=== PATIENT | male | born 1965 | race Caucasian/White ===

== ENCOUNTER 2017-01-16 14:04 | Observation (INO) | payer BC ==
[~2017-01-16] VITALS: Ht 182.9 cm; Wt 115.6 kg
--- NOTE | ~2017-01-16 | HP ---
Unit #: [id number] #: [id number] Patient: BRIDGER MILLS [id number] [address] [place], [place] [address] [id number] I MR#: [id number] NAME: BRIDGER MILLS. ROOM: 64319 Age: 51 Sex: M Admission Date: 01/16/2017 : 1965 Attending Physician: Alen Telles M.D. HISTORY AND PHYSICAL HISTORY OF PRESENT ILLNESS This 51-year-old white male patient woke up around 3 a.m. with moderately severe chest pains. Initially, the chest pain felt like somebody was sitting on his chest. Subsequently, he had moderately severe pressure associated with shortness of breath but no diaphoresis. The pain did not radiate to the arm or neck. He was given three sublingual nitroglycerin in the ER with some relief. Patient claims that he had two heart attacks, in 2001 and 2006, while in [place]. He underwent two cardiac catheterizations at the [facility], and each time apparently it was normal. In August 2009, patient was admitted here with chest pains. At the time, he had a Cardiolite study which showed no ischemia. He has diabetes and obstructive sleep apnea. EKG shows no acute changes. Initial troponins are negative. PERSONAL HISTORY He smoked a half to one pack of cigarettes per day for several years and quit about three months ago. He works for [employer]. FAMILY HISTORY His father had a heart attack at age 50. PAST SURGICAL HISTORY 1. Tonsillectomy. 2. Inguinal hernia repair. ALLERGIES No drug allergies. He has intolerance to lisinopril. HOME MEDICATIONS 1. Glipizide. 2. Lipitor. 3. Gabapentin. 4. Prilosec. REVIEW OF SYSTEMS No fever, chills, night sweats, or weight loss. All others negative except as mentioned above. PHYSICAL EXAMINATION VITAL SIGNS: Blood pressure 135/88, heart rate 65 per minute, and respiratory rate 18 per minute. GENERAL APPEARANCE: Patient is well-developed. HEENT: Oral mucosa without cyanosis or pallor. No xanthelasma. NECK: No JVD. Unit #: [id number] #: [id number] Patient: BRIDGER MILLS CARDIOVASCULAR: Regular rate and rhythm. PMI is not displaced on auscultation. S1 and S2 are normal. No S3, S4, murmurs, rubs, or clicks noted. VASCULAR: Carotid pulses are brisk, without bruit. Abdominal aorta without bruit. Femoral and pedal pulses are normal with a normal pulse amplitude. LUNGS: Clear to auscultation without rales, rhonchi, or wheezes, and no accessory muscle use noted. ABDOMEN: Soft and nontender. No hepatosplenomegaly. RECTAL: Deferred. EXTREMITIES: Warm and dry. No cyanosis or clubbing. No pedal edema. MUSCULOSKELETAL: No scoliosis. DERMATOLOGY: No stasis dermatitis. NEUROLOGY: Alert and oriented x3. Pleasant affect. DIAGNOSTIC STUDIES LABORATORY: Glucose 263, BUN 15, creatinine 1.5, sodium 133, and potassium 3.9. Troponin less than 0.01. WBC 7.4, hemoglobin 14.4, hematocrit 41.4, and platelet count 181,000. IMPRESSION 1. Chest pain, rule out myocardial infarction. 2. History of myocardial infarction in 2001 and 2006, however, normal heart catheterizations according to patient. 3. Diabetes. 4. Obstructive sleep apnea. PLAN Patient's EKG and cardiac enzymes will be monitored. Will get an echocardiogram and schedule him for a Lexiscan Cardiolite study in the morning. Dictated by Oneal Reina/cristine TD: 01/16/2017 18:12 JOB #: [id number] HISTORY AND PHYSICAL Page 1 of 1 X Alen Telles MD X HISTORY AND PHYSICAL
--- NOTE | ~2017-01-16 | EKG ---
PATIENT: BRIDGER MILLS UNIT #: [id number] Ventricular Rate: 54 BPM Atrial Rate: 54 BPM P-R Interval: 150 ms QRS Duration: 84 ms Q-T Interval: 434 ms QTC Calculation(Bezet): 411 ms P Douglas: 56 degrees Calculated R Douglas: -3 degrees Calculated T Douglas: 9 degrees Diagnosis Line: Sinus bradycardia with sinus arrhythmia Diagnosis Line: Otherwise normal ECG Diagnosis Line: When compared with ECG of 16-JAN-2017 14:09, Diagnosis Line: No significant change was found Diagnosis Line: Confirmed by AMI VALENCIA MD ([id number]) on Diagnosis Line: 01/17/2017 9:37:15 AM INTERPRETING MD: ERIK BENTON
--- NOTE | ~2017-01-16 | ST ---
Unit #: [id number] #: [id number] Patient: BRIDGER MILLS [id number] [address] [address] [id number] I MR#: [id number] NAME: BRIDGER MILLS. : 1965 SEX: M STUDY DATE/TIME: 01/17/2017 UNIT: [facility] ROOM: 577 STUDY DESCRIPTION: Attending Physician: Alen Telles M.D. Primary Care Physician: Chinyere Primary Care Physician CARDIOLOGY REPORT EXAM ECG portion of Lexiscan stress test. SUMMARY Patient underwent Lexiscan protocol. Resting heart rate 62 beats per minute, increased to maximum of 88 beats per minute representing 52% of the maximum age predicted heart rate. The patient's resting blood pressure 119/80 mmHg which increased to 129/75 mmHg. The patient's resting ECG shows normal sinus rhythm with normal ST segments. The patient's stress ECG shows normal sinus rhythm with preserved ST segments. There is no ventricular or supraventricular ectopy noted. There are no pauses noted. CONCLUSION 1. Negative ECG portion of the Lexiscan study for ischemia. 2. Perfusion imaging to be dictated below. EXAM Perfusion imaging. SUMMARY The patient underwent nuclear stress test. Received a resting dose of 11 mCi and a stress dose of 35.8 mCi. On gated imaging, patient appears to have normal wall motion of the preserved ejection fraction. The patient's LV EF is 61%. On perfusion imaging, comparing rest and stress imaging, there appears to be no reversible perfusion defect. CONCLUSION 1. No ischemia. 2. Preserved ejection fraction. 3. ECG portion dictated above. Dictated by... Oneal Reyes/roseline TD: 01/17/2017 15:12 JOB #: [id number] Unit #: [id number] #: [id number] Patient: BRIDGER MILLS CARDIOLOGY REPORT Page 1 of 1 X JOSE A BLACKWELL MD CARDIOLOGY REPORT
--- NOTE | ~2017-01-16 | EKG ---
PATIENT: BRIDGER MILLS UNIT #: [id number] Ventricular Rate: 59 BPM Atrial Rate: 59 BPM P-R Interval: 136 ms QRS Duration: 88 ms Q-T Interval: 410 ms QTC Calculation(Bezet): 405 ms P Fombell: 21 degrees Calculated R Fombell: -23 degrees Calculated T Fombell: 6 degrees Diagnosis Line: Sinus bradycardia Diagnosis Line: Otherwise normal ECG Diagnosis Line: When compared with ECG of 10-APR-2011 16:48, Diagnosis Line: Vent. rate has decreased BY 36 BPM Diagnosis Line: Confirmed by CHARLY HITCHCOCK MD ([id number]) on Diagnosis Line: 01/16/2017 5:44:29 PM INTERPRETING MD: NALDO BENTON
--- NOTE | ~2017-01-16 | CR72 ---
[facility] A Service of [facility] RADIOLOGY TEXT RESULTS PATIENT: BRIDGER MILLS LOCATION: [facility] 57-01 : [birth year] UNIT #: [id number] AGE: [address]: Alen Telles MD SEX: M ORDER DR: [id number] [facility] [address] [place], [place] [address] [id number] I MR#: [id number] Acc #: [id number] NAME: BRIDGER MILLS. : 1965 SEX: M STUDY DATE/TIME: 01/16/2017 15:29 UNIT: [facility] ROOM: [facility] STUDY DESCRIPTION: CR Chest Single View Portable Attending Physician: Alen Telles M.D. Ordering Physician: Alli Mora M.D. Primary Care Physician: Primary Care Physician No MEDICAL IMAGING REPORT This report is preliminary unless electronic signature is present EXAM Single view chest INDICATIONS Chest pain. FINDINGS Single portable AP view of the chest compared to 04/10/2011 and 11/23/2010. The heart and mediastinal contours are normal. The lungs are clear. IMPRESSION Negative chest. Dictated by... Daquan Vargas M.D. THIS IS AN ELECTRONICALLY VERIFIED REPORT Daquan Vargas M.D. at 01/17/2017 8:10 AM C/saleem TD: 01/17/2017 02:05 JOB #: [id number] MEDICAL IMAGING REPORT Page 1 of 1 COPY
--- NOTE | ~2017-01-16 | DS ---
Unit #: [id number] #: [id number] Patient: BRIDGER MILLS [id number] [address] [address] [id number] I MR#: [id number] NAME: BRIDGER MILLS. ROOM: 577 Age: 51 Sex: M Admission Date: 01/16/2017 : 1965 Discharge Date: 01/17/2017 Attending Physician: Alen Telles M.D. DISCHARGE SUMMARY DISCHARGE DIAGNOSES 1. Chest pain. 2. History of myocardial infarction in 2001 and 2006 with reportedly normal catheterizations. 3. Diabetes. 4. Obstructive sleep apnea with CPAP. 5. Tobaccoism. PROCEDURES 1. Patient underwent a Lexiscan Cardiolite stress test which per Dr. Groves was normal. Full report is pending. 2. A 2D echocardiogram pending. 3. Troponins are less than 0.03 x2. 4. EKG unremarkable. HISTORY/HOSPITAL COURSE The patient is a 51-year-old man who reports that he has a history of non-STEMI in 2001 and 2006 with reportedly normal cardiac catheterizations. He also has a history of diabetes, obstructive sleep apnea, and tobaccoism. Patient presented to the emergency department with complaints of moderately severe chest pressure with shortness of breath but no diaphoresis. The pain did not radiate. He was given three sublingual nitroglycerin in the ER with some relief. The patient was admitted for further workup. Patient's troponin trend was negative, and his EKG was unremarkable. Patient ultimately underwent a Lexiscan Cardiolite stress test which per Dr. Groves's report was normal and showed no ischemia. His 2D echocardiogram is pending. Once the patient has been seen by Dr. Groves and if his echo is okay, the patient will be discharged today. DISCHARGE FOLLOWUP INSTRUCTIONS 1. Patient will be discharged home. 2. Healthy heart diet. 3. Follow up with primary care provider in one week. 4. Follow up with Pulmonary in one week regarding his CPAP machine. 5. Follow up with Dr. Groves in four to six weeks. 6. Activity as tolerated. 7. Patient needs to quit smoking. 8. Patient is to seek medical attention or return to the ER if signs or symptoms worsen. Unit #: [id number] #: [id number] Patient: BRIDGER MILLS DISCHARGE MEDICATIONS 1. Neurontin 300 mg p.o. t.i.d. 2. Lipitor 20 mg p.o. at bedtime. 3. Aspirin 81 mg p.o. daily. 4. Ibuprofen 800 mg p.o. t.i.d. 5. Omeprazole 20 mg p.o. daily. 6. Glipizide 10 mg p.o. daily. 1. Dictated by... Steff Haley A.P.R.N. for Jack Groves M.D. AM/cristine TD: 01/17/2017 19:01 JOB #: [id number] DISCHARGE SUMMARY Page 1 of 1 X Steff Haley [employer] X DISCHARGE SUMMARY
[~2017-01-16 14:04] MED LIST: ASPIRIN PO; DIOVAN40 MG PO; GLUCOPHAGE XR500 MG PO; GLUCOTROL PO; GLUCOTROL10 MG PO; LOPID600 MG PO; SIMVASTATIN40 MG PO
[2017-01-16 15:00] LABS: POC - CKMB 5.7 ng/mL (0.0-7.9); POC - TROPONIN <0.05 ng/mL (<=0.05)
[2017-01-16 15:09] LABS: BASOPHIL# 0.1 X10e3 (0-0.3); BASOPHIL% 0.7 % (0-2.5); EOSINOPHIL# 0.3 X10e3 (0-0.7); EOSINOPHIL% 4.6 % (0.0-7.0); HEMATOCRIT 41.4 % (38.0-50.0); HEMOGLOBIN 14.4 gm/dL (13.0-16.0); LYMPHOCYTE# 2.1 X10e3 (1.0-3.5); LYMPHOCYTE% 28.4 % (17.0-45.0); MEAN CELL VOLUME 88.9 FL (83-96); MEAN CORPUSCULAR HGB CONC 34.9 g/dL (30-36); MEAN PLATELET VOLUME 9.3 FL (6.5-11.5); MONOCYTE# 0.5 X10e3 (0-1.0); MONOCYTE% 6.3 % (3.0-12.0); NEUTROPHIL# 4.5 X10e3 (1.5-7.1); PLATELET COUNT 181 X10e3 (140-420); RED BLOOD COUNT 4.65 X10e (3.90-5.60); RED CELL DISTRIBUTION WIDTH 12.9 % (11.0-15.5); WHITE BLOOD COUNT 7.4 X10e3 (4.0-10.5)
[2017-01-16 15:21] LABS: DIFF IND NO
[2017-01-16 15:34] LABS: POC - CKMB 5.4 ng/mL (0.0-7.9); POC - TROPONIN <0.05 ng/mL (<=0.05)
[2017-01-16 15:35] LABS: ALBUMIN SERUM 4.2 g/dL (3.5-5.0); BILIRUBIN, DIRECT 0.1 mg/dL (0.0-0.2); BILIRUBIN,INDIRECT 0.6 mg/dL (0.0-0.9); BILIRUBIN,TOTAL 0.7 mg/dL (0.2-2.0); BUN/CREATININE RATIO 16.66; CALCIUM SERUM 8.7 mg/dL (8.4-10.2); CREATININE SERUM 0.9 mg/dL (0.6-1.4); GLOM FILT RATE Estimated 97.2 mL/min (>60); POTASSIUM 3.9 mmol/L (3.5-5.1); PROTEIN TOTAL SERUM 7.4 g/dL (6.0-8.3)
[2017-01-16 16:22] LABS: POC - CKMB 3.8 ng/mL (0.0-7.9); POC - TROPONIN <0.05 ng/mL (<=0.05)
[2017-01-16] MEDS ORDERED: GLIPIZIDE10 MG PO (21:00)
[2017-01-16] MEDS ORDERED: LIPITOR20 MG PO (21:01)
[2017-01-16] MEDS ORDERED: IBUPROFEN800 MG PO (21:02)
[2017-01-16] MEDS ORDERED: OMEPRAZOLE20 M1 PO (21:03)
[2017-01-16] MEDS ORDERED: GABAPENTIN300 M2 PO (21:04)
[2017-01-16 23:28] LABS: %MB 1.4 % (0.0-4.0); MB 5.6 ng/ml
[2017-01-17 02:56] LABS: %MB 1.7 % (0.0-4.0); MB 5.7 ng/ml
[2017-01-17 16:33] LABS: CHOLESTEROL 168 mg/dL (0-200); HDL CHOLESTEROL 34 mg/dL (29-75); LDL CHOLESTEROL 76 mg/dL ([, -130]); LDL/HDL RATIO 2 RATIO (0-4); TRIGLYCERIDES 290 mg/dL (10-160)
== END 2017-01-17 16:24 | disposition home or self-care (01) | DRG 313 ==
LOC: CED 14:04 → C5C 17:24 → CEDOF 17:24 → C5C 18:31
PROVIDERS: Emergency Medicine; Internal Medicine Cardiovascular Disease; Nurse Practitioner
DX: R07.89 Other chest pain (principal); I51.7 Cardiomegaly; I08.1 Rheumatic disorders of both mitral and tricuspid valves; I25.2 Old myocardial infarction; E11.9 Type 2 diabetes mellitus without complications; Z79.84 Long term (current) use of oral hypoglycemic drugs; G47.33 Obstructive sleep apnea (adult) (pediatric); F17.210 Nicotine dependence, cigarettes, uncomplicated; Z79.1 Long term (current) use of non-steroidal anti-inflammatories (NSAID); Z79.899 Other long term (current) drug therapy; Z82.49 Family history of ischemic heart disease and other diseases of the circulatory system; Z98.890 Other specified postprocedural states
CPT/HCPCS: 36415; 71010; 78452; 80048; 80061; 80076; 82550; 82553; 82947; 83690; 84443; 84484; 85025; 93005; 93017; 93306; 94760; 96374; 99285; A9500; G0378; J1650; J2270; J2785